=== PATIENT | male | born 1980 | race American Indian/Alaskan Native ===

== ENCOUNTER 2017-04-01 13:43 | Emergency (ER) | payer MEDICAID ==
[2017-04-01 14:03] VITALS: TEMP 98.9; O2SAT 99
--- NOTE | 2017-04-01 15:57 | RAD ---
PROCEDURE: Radiographs of the Right Shoulder HISTORY: pain fall yesterday COMPARISON: None available FINDINGS: BONES: No acute displaced fracture. The distal clavicle and underlying ribs appear intact. JOINTS: No acute dislocation. SOFT TISSUES: Soft tissues appear unremarkable. No evidence of radiopaque foreign body. IMPRESSION: No acute displaced fracture or dislocation evident. If symptoms persist or if there is continued clinical concern, x-ray follow-up in 7-10 days should be considered.
--- NOTE | 2017-04-01 15:59 | RAD ---
PROCEDURE: Bilateral hand radiographs. HISTORY: pain fall yesterday COMPARISON: None available. FINDINGS: BONES: Right Hand: No acute displaced fracture. Left Hand: No acute displaced fracture. JOINTS: Right Hand: No dislocation Left Hand: No dislocation. SOFT TISSUES: Right Hand: Unremarkable. No evidence of radiopaque foreign body. Left Hand: Unremarkable insert radiopaque foreign body. OTHER FINDINGS: None. IMPRESSION: No acute displaced fracture dislocation identified. If symptoms persist or if there is continued clinical concern, x-ray follow-up in 7-10 days should be considered.
[2017-04-01] MEDS ORDERED: Naproxen 550 mg Tab PO STA (16:19)
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
[2017-04-01] MEDS ORDERED: Naproxen 550 mg Tab PO ONE (16:25)
[2017-04-01 16:48] VITALS: BP 126/79; PULSE 75; RESP 16
== END 2017-04-01 16:47 | disposition home or self-care (01) ==
LOC: C.ER 13:43
DX: S46.911A Strain of unspecified muscle, fascia and tendon at shoulder and upper arm level, right arm, initial encounter (principal); T14.8 Other injury of unspecified body region; Y09 Assault by unspecified means

== ENCOUNTER 2017-04-08 15:15 | Emergency (ER) | payer MEDICAID ==
[2017-04-08 15:22] VITALS: BP 130/83; PULSE 91; RESP 18; TEMP 97.8; O2SAT 98
--- NOTE | 2017-04-08 15:37 | C.PDOC ---
History Of Present Illness REQUESTING R PERIORB SUTURE REMOVAL. PLACED 7 DAYS AGO @ [facility] [place]. NO DC, REDNESS, PAIN TO AREA. STATES RECEIVED 8 EXAM NAD SKIN [address] HEALED LAC R OUTER BELOW EYEBROW PROC 8 SIMPLE SUTURES REMOVED W 11 BLADE WO DIFF. PT TOLERATED WELL Time Seen by Provider: 04/08/17 15:26 Chief Complaint (Nursing): Suture/Staple Removal History Per: Patient History/Exam Limitations: no limitations Past Medical History Reviewed: Historical Data, Nursing Documentation, Vital Signs Vital Signs: Last Vital Signs Temp 97.8 F 04/08/17 15:17 Pulse 91 H 04/08/17 15:17 Resp 18 04/08/17 15:17 BP 130/83 04/08/17 15:17 Pulse Ox 98 04/08/17 15:39 - Medical History PMH: HTN - [facility] Procedures CLOSURE SKIN & SUBCUTANEOUS NEC (06/10/14) LINEAR REP LID LACER (06/10/14) Family History: States: No Known Family Hx - Social History Hx Tobacco Use: Yes Hx Alcohol Use: No Hx Substance Use: No (denies) - Immunization History Hx Tetanus Toxoid Vaccination: Yes (unknown) Hx Influenza Vaccination: No (unknown) Hx Pneumococcal Vaccination: No (unknown) Review Of Systems Except As Marked, All Systems Reviewed And Found Negative. Constitutional: Negative for: Fever Gastrointestinal: Negative for: Nausea, Vomiting Physical Exam - Physical Exam Appears: Non-toxic, No Acute Distress Skin: Other ([address] HEALED LAC R OUTER BELOW EYEBROW) ED Course And Treatment O2 Sat by Pulse Oximetry: 98 Medical Decision Making Medical Decision Makin SIMPLE SUTURES REMOVED W 11 BLADE WO DIFF. PT TOLERATED WELL Disposition Counseled Patient/Family Regarding: Diagnosis, Need For Followup - Disposition Referrals: YOUR,PMD [Other] Disposition: HOME/ ROUTINE Disposition Time: 15:39 Condition: GOOD Instructions: Stitches Removal (ED) - Clinical Impression Clinical Impression: Removal of suture - Scribe Statement The provider has reviewed the documentation as recorded by the Katie Angulo All medical record entries made by the Scribe were at my direction and personally dictated by me. I have reviewed the chart and agree that the record accurately reflects my personal performance of the history, physical exam, medical decision making, and the department course for this patient. I have also personally directed, reviewed, and agree with the discharge instructions and disposition.
== END 2017-04-08 16:00 | disposition home or self-care (01) ==
LOC: C.ER 15:15
DX: Z48.02 Encounter for removal of sutures (principal); I10 Essential (primary) hypertension; Z72.0 Tobacco use

== ENCOUNTER 2017-05-23 12:41 | Emergency (ER) | payer MEDICAID ==
[2017-05-23 12:41] VITALS: BMI 32.2
[2017-05-23 12:48] VITALS: BP 127/82; PULSE 86; RESP 16; TEMP 97.2; O2SAT 100
--- NOTE | 2017-05-23 13:35 | C.PDOC ---
History Of Present Illness Patient is a 36 y/o male that presents to the ED for removal of brenda from occipital scalp. Pt states brenda were [place] [facility] [place] ago. Otherwise, denies any fever, chills, pain, swelling, or any other associated symptoms a this time. Time Seen by Provider: 05/23/17 12:49 Chief Complaint (Nursing): Wound Check History Per: Patient History/Exam Limitations: no limitations Onset/Duration Of Symptoms: Days Ago (10) Current Symptoms Are (Timing): Still Present Location Of Injury: Right: Head, Posterior: Head Quality Of Symptoms: denies: Painful, Itching, Swollen, Draining Severity: None Pain Scale Rating Of: 0 Recent travel outside of the [place]: No Additional History Per: Patient Past Medical History Reviewed: Historical Data, Nursing Documentation, Vital Signs Vital Signs: Last Vital Signs Temp 97.2 F L 05/23/17 12:47 Pulse 86 05/23/17 12:47 Resp 16 05/23/17 12:47 BP 127/82 05/23/17 12:47 Pulse Ox 100 05/23/17 13:35 - Medical History PMH: HTN - [facility] Procedures CLOSURE SKIN & SUBCUTANEOUS NEC (06/10/14) LINEAR REP LID LACER (06/10/14) Family History: States: Unknown Family Hx - Social History Hx Tobacco Use: Yes Hx Alcohol Use: Yes Hx Substance Use: No - Immunization History Hx Tetanus Toxoid Vaccination: Yes (unknown) Hx Influenza Vaccination: No (unknown) Hx Pneumococcal Vaccination: No (unknown) Review Of Systems Except As Marked, All Systems Reviewed And Found Negative. Constitutional: Negative for: Fever, Chills Neurological: Negative for: Weakness, Numbness, Headache, Dizziness Physical Exam - Physical Exam Appears: Non-toxic, No Acute Distress Skin: Normal Color, Warm, Dry Head: Atraumatic, Normacephalic, No Tenderness, No Swelling, Laceration ( healing irregular laceration on the right side of occipital scalp; no signs of infection) Eye(s): bilateral: Normal Inspection, EOMI Neck: Normal ROM, Supple Neurological/Psych: Oriented x3, Normal Speech, Normal Cognition ED Course And Treatment O2 Sat by Pulse Oximetry: 100 (on RA) Pulse Ox Interpretation: Normal Progress Note: 7 brenda removed from right occipital scalp. Patient tolerated procedure well, no immediate complications. Patient is being discharged home with instructions to follow up with PMD in 1-2 days. Disposition - Disposition Disposition: HOME/ ROUTINE Disposition Time: 13:33 Condition: STABLE Additional Instructions: Follow up with PMD /clinic within 1-2 days. Return to Ed if feel worse. Prescriptions: Bacitracin OINT 1 applic TP TID #45 g Instructions: Stitches Removal (ED) - Clinical Impression Clinical Impression: Removal of brenda - PA / JORDAN WORKER / Resident Statement MD/DO has reviewed & agrees with the documentation as recorded. - Scribe Statement The provider has reviewed the documentation as recorded by the Scribe Dax Young All medical record entries made by the Greggibjanessa were at my direction and personally dictated by me. I have reviewed the chart and agree that the record accurately reflects my personal performance of the history, physical exam, medical decision making, and the department course for this patient. I have also personally directed, reviewed, and agree with the discharge instructions and disposition.
== END 2017-05-23 13:38 | disposition home or self-care (01) ==
LOC: C.ER 12:41
DX: Z48.02 Encounter for removal of sutures (principal)

== ENCOUNTER 2017-07-05 01:59 | Observation (INO) | payer MEDICAID ==
[2017-07-05 02:00] VITALS: BMI 32.2
[2017-07-05 02:08] VITALS: RESP 18; O2SAT 95
[2017-07-05 03:08] LABS: BASO # 0.1 K/uL (0.0-0.2); BASO % 1.1 % (0.0-2.0); EOS % 8.9 % (0.0-4.0); HEMATOCRIT 44.6 % (35.0-51.0); LYMPH # 3.5 K/uL (1.0-4.3); LYMPH % 30.3 % (20.0-40.0); MEAN CELL VOLUME 90.2 fL (80.0-94.0); MEAN CORPUSCULAR HEMOGLOBIN 29.8 pg (27.0-31.0); MEAN CORPUSCULAR HGB CONC 33.1 g/dL (33.0-37.0); MEAN PLATELET VOLUME 8.7 fL (7.2-11.7); MONO # 0.6 K/uL (0.0-0.8); MONO % 4.9 % (0.0-10.0); NRBC % 0.1 % (0.0-2.0); RED CELL DISTRIBUTION WIDTH 14.3 % (11.5-14.5); WHITE BLOOD COUNT 11.6 K/uL (4.8-10.8)
[2017-07-05 03:20] LABS: CHLORIDE 102 mmol/L (98-107); POTASSIUM 3.8 mmol/L (3.6-5.2); SODIUM 143 mmol/L (132-148)
[2017-07-05 03:22] LABS: GFR AFRICAN-AMERICAN > 60
[2017-07-05 03:23] LABS: ALB/GLOB RATIO 1.3 (1.0-2.1); ALKALINE PHOSPHATASE 71 U/L (38-126); ALT/SGPT 59 U/L (21-72); AST/SGOT 34 U/L (17-59); BILIRUBIN,TOTAL 0.5 mg/dL (0.2-1.3); BLOOD UREA NITROGEN 12 mg/dL (9-20); CALCIUM 9.3 mg/dl (8.6-10.4); CARBON DIOXIDE 22 mmol/L (22-30); GLUCOSE,RANDOM 98 mg/dL (75-110); TOTAL PROTEIN 7.5 g/dL (6.3-8.3)
[2017-07-05 03:24] LABS: ALCOHOL SERUM 272 mg/dl (0-10)
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
[2017-07-05 05:51] VITALS: BP 120/72; PULSE 90; TEMP 97.9
== END 2017-07-05 05:46 | disposition home or self-care (01) ==
LOC: C.ER 01:59 → C.9OBSV 02:39
PROVIDERS: ADMIT Emergency Medicine; ATTEND Emergency Medicine
DX: F10.120 Alcohol abuse with intoxication, uncomplicated (principal); Y90.8 Blood alcohol level of 240 mg/100 ml or more; I10 Essential (primary) hypertension; Z87.891 Personal history of nicotine dependence
CPT/HCPCS: 80053; 80320; 82948; 85025; 99283; G0378

== ENCOUNTER 2017-08-22 08:43 | Emergency (ER) | payer MEDICAID ==
[2017-08-22 08:44] VITALS: BMI 32.2
[2017-08-22 08:51] VITALS: BP 134/90; PULSE 78; RESP 17; TEMP 97.7; O2SAT 99
--- NOTE | 2017-08-22 09:11 | C.PDOC ---
History Of Present Illness José Miguel Avina is a 37 year old male, with no past medical history, who presents to the emergency department complaining of left lateral chest wall discomfort onset 1 day ago. Patient reports symptoms began after stretching to lift something heavy at work yesterday. Patient denies any chest pain, shortness of breath. No further medical complaints. PMD: Collins Wells Time Seen by Provider: 08/22/17 09:05 Chief Complaint (Nursing): Rib Injury History Per: Patient History/Exam Limitations: no limitations Onset/Duration Of Symptoms: Days (x1) Current Symptoms Are (Timing): Still Present Context: Other (lifted something heavy at work) Pain Scale Rating Of: 9 Quality: "Pain" Past Medical History Reviewed: Historical Data, Nursing Documentation, Vital Signs Vital Signs: Last Vital Signs Temp 97.7 F 08/22/17 08:47 Pulse 78 08/22/17 08:47 Resp 17 08/22/17 08:47 BP 134/90 08/22/17 08:47 Pulse Ox 99 08/22/17 09:11 - Medical History PMH: HTN - [facility] Procedures CLOSURE SKIN & SUBCUTANEOUS NEC (06/10/14) LINEAR REP LID LACER (06/10/14) Family History: States: Unknown Family Hx - Social History Hx Tobacco Use: Yes Hx Alcohol Use: No Hx Substance Use: No (DENIED) - Immunization History Hx Tetanus Toxoid Vaccination: (unkown) Hx Influenza Vaccination: No Hx Pneumococcal Vaccination: No Review Of Systems Cardiovascular: Positive for: Other (left lateral chest wall discomfort). Negative for: Chest Pain Respiratory: Negative for: Shortness of Breath Physical Exam - Physical Exam Appears: Well, No Acute Distress Skin: Normal Color, Warm, Dry, No Rash Head: Atraumatic Eye(s): bilateral: Normal Inspection Cardiovascular: Rhythm Regular, No Murmur Respiratory: Normal Breath Sounds Extremity: Normal ROM, No Pedal Edema, No Deformity, No Swelling Neurological/Psych: Normal Speech, Normal Cognition, Normal Motor, Normal Sensation ED Course And Treatment O2 Sat by Pulse Oximetry: 99 (RA) Pulse Ox Interpretation: Normal Medical Decision Making Medical Decision Making: L lateral chest wall discomfort, streched @ work, no fall clear lungs costochoncritis. Disposition Doctor Will See Patient In The: Office Counseled Patient/Family Regarding: Studies Performed, Diagnosis - Disposition Referrals: Collins Wells MD [Medical Doctor] - Disposition: HOME/ ROUTINE Disposition Time: 09:11 Condition: GOOD Additional Instructions: ice packs 1/2 hour per hour, nothing hot, no hot showers motrin 400-600 mg every 6 hours as needed Pepcid 20 mg @ night to prevent stomach irritation NO heavy lifting for 1 week (as able) Instructions: Costochondritis (ED) Forms: Work/School/Gym Excuse, [facility] (Urdu) - Clinical Impression Clinical Impression: Chest wall discomfort - Scribe Statement Shaun Blue Provider Attestation: All medical record entries made by the Scribe were at my direction and personally dictated by me. I have reviewed the chart and agree that the record accurately reflects my personal performance of the history, physical exam, medical decision making, and the department course for this patient. I have also personally directed, reviewed, and agree with the discharge instructions and disposition.
== END 2017-08-22 09:25 | disposition home or self-care (01) ==
LOC: C.ER 08:43
DX: R07.89 Other chest pain (principal)

== ENCOUNTER 2017-11-12 20:59 | Emergency (ER) | payer MEDICAID ==
[2017-11-12 21:00] VITALS: BMI 32.2
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
[2017-11-12 22:23] VITALS: BP 117/82; PULSE 110; RESP 16; TEMP 98.9
[2017-11-12 22:27] VITALS: O2SAT 98
== END 2017-11-12 22:23 | disposition home or self-care (01) ==
LOC: C.ER 20:59
DX: F10.129 Alcohol abuse with intoxication, unspecified (principal); I10 Essential (primary) hypertension; Z87.891 Personal history of nicotine dependence